=== PATIENT | female | born 1990 | race Hispanic/Latino ===

== ENCOUNTER 2021-07-26 10:55 | Observation (INO) | payer OTHER ==
[~2021-07-26] VITALS: Ht 154.9 cm; Wt 78.0 kg
== END 2021-07-26 13:25 | disposition home or self-care (01) ==
LOC: LDH 10:55
PROVIDERS: ADMIT Obstetrics & Gynecology; ATTEND Obstetrics & Gynecology
DX: O42.913 Preterm premature rupture of membranes, unspecified as to length of time between rupture and onset of labor, third trimester (principal); O62.9 Abnormality of forces of labor, unspecified; Z3A.36 36 weeks gestation of pregnancy
CPT/HCPCS: 59025; 76805; 82120; G0378 ×2; G0379

== ENCOUNTER 2021-08-09 10:36 | Inpatient (IN) | payer OTHER ==
[~2021-08-09] VITALS: Ht 154.9 cm; Wt 79.4 kg
[2021-08-09] MEDS: LACTATED RINGERS 1000ML 1,000 ML IV PRN ×2 (11:15→12:38)
[2021-08-09 11:34] LABS: HEMATOCRIT 30.7 % (36-48); MEAN CORPUSCULAR HEMOGLOBIN 26.6 pg (27.0-33.0); MEAN CORPUSCULAR HGB CONC 32.6 g/dL (32.0-36.0); MEAN CORPUSCULAR VOLUME 81.6 fL (79-99); RED BLOOD CELL COUNT(AUTO) 3.76 MIL/uL (4.00-5.50); RED CELL DISTRIBUTION WIDTH 14.2 % (11.0-15.5); WHITE BLOOD COUNT (AUTO) 8.8 K/uL (4.8-10.8)
[2021-08-09 11:36] LABS: APPEARANCE,URINE CLEAR (CLEAR); BILIRUBIN,URINE NEGATIVE (NEGATIVE); COLOR,URINE YELLOW (YELLOW); GLUCOSE, URINE (UA) NEGATIVE (NEGATIVE); KETONES,URINE NEGATIVE (NEGATIVE); LEUKOCYTE ESTERASE ,URINE SMALL (NEGATIVE); NITRATE,URINE NEGATIVE (NEGATIVE); OCCULT BLOOD,URINE NEGATIVE (NEGATIVE); PROTEIN,URINE NEGATIVE (NEGATIVE)
[2021-08-09 11:37] LABS: BACTERIA,URINE Rare /HPF (None Seen); CREATININE 0.6 mg/dL (0.5-1.5); POTASSIUM 3.8 mmol/L (3.5-5.1); RBC,URINE 0-1 /HPF (0-1); SQUAMOUS EPITHELIAL CELL,UR Rare /HPF (0-2); WBC,URINE 0-1 /HPF (0-1)
[2021-08-09 11:41] LABS: INR 0.93 (0.85-1.15); PROTHROMBIN TIME 9.9 SEC (9.6-11.6)
[2021-08-09 11:42] LABS: PARTIAL THROMBOPLASTIN TIME 25.2 SEC (26.3-35.5)
[2021-08-09 11:44] LABS: ALBUMIN 2.5 g/dL (3.5-5.0); BILIRUBIN,TOTAL 0.3 mg/dL (0.2-1.0); URIC ACID 5.1 mg/dL (2.6-7.2)
[2021-08-09] MEDS ORDERED: OXYTOCIN-LR 20 UNITS/1000 ML 1,000 ML IV SCH ×2 (12:30→15:00)
[2021-08-09] MEDS ORDERED: ROPIVACAINE 0.2% 100ML VIAL 100 ML EP SCH (12:30)
[2021-08-09] MEDS ORDERED: NALOXONE HCL 0.4 MG/1 ML ML IV PRN (12:30)
[2021-08-09] MEDS ORDERED: LACTATED RINGERS 500 ML 500 ML IV PRN (12:30)
[2021-08-09] MEDS ORDERED: MEPERIDINE-PF 50 MG/ML SYG IVP PRN (12:30)
[2021-08-09] MEDS ORDERED: EPHEDRINE SULFATE 50 MG/ML AMPULE IVP PRN (12:30)
[2021-08-09] MEDS ORDERED: PROMETHAZINE HCL 25 MG/ML 1ML AMPULE IM PRN (12:30)
[2021-08-09] MEDS ORDERED: LIDOCAINE HCL 1% 20 ML VIAL ONE (14:40)
[2021-08-09] MEDS ORDERED: WITCH HAZEL 1 PAD TP PRN (15:00)
[2021-08-09] MEDS ORDERED: ACETAMINOPHEN 325 MG TAB PO PRN (15:00)
[2021-08-09] MEDS ORDERED: LANOLIN 30GM OINTMENT TP PRN (15:00)
[2021-08-09] MEDS ORDERED: BENZOCAINE/LANOLIN/ALOE VERA 60 ML AEROSOL TP PRN (15:00)
[2021-08-09] MEDS ORDERED: DIPH,PERTUSS(ACELL),TET VAC/PF 0.5 ML VIAL IM PRN (15:00)
[2021-08-09] MEDS ORDERED: MEASLES/MUMPS/RUBELLA VACCINE, LIVE 0.5 ML/VIAL SQ PRN (15:00)
[2021-08-09] MEDS ORDERED: ACETAMINOPHEN WITH CODEINE 1 TAB TAB PO PRN (15:00)
[2021-08-09] MEDS: IBUPROFEN 600 MG TABLET PO PRN (17:42)
[2021-08-09] MEDS ORDERED: PREN-154 PO (18:03)
[2021-08-09 19:29] VITALS: BP 120/74
[2021-08-09] MEDS: DOCUSATE SODIUM 100 MG CAP PO SCH (20:38)
[2021-08-09 23:18] VITALS: BP 107/69
[2021-08-10 03:42] VITALS: BP 114/74
[2021-08-10] MEDS: IBUPROFEN 600 MG TABLET PO PRN (04:02)
[2021-08-10 06:39] LABS: HEMATOCRIT 26.2 % (36-48); MEAN CORPUSCULAR HEMOGLOBIN 26.6 pg (27.0-33.0); MEAN CORPUSCULAR HGB CONC 32.4 g/dL (32.0-36.0); MEAN CORPUSCULAR VOLUME 82.1 fL (79-99); RED BLOOD CELL COUNT(AUTO) 3.19 MIL/uL (4.00-5.50); RED CELL DISTRIBUTION WIDTH 14.3 % (11.0-15.5); WHITE BLOOD COUNT (AUTO) 11.1 K/uL (4.8-10.8)
[2021-08-10 07:07] VITALS: BP 102/63
[2021-08-10] MEDS: DOCUSATE SODIUM 100 MG CAP PO SCH (09:46)
[2021-08-10 11:50] VITALS: BP 113/75
[2021-08-10 12:00] VITALS: BP_SYST 113; BP_SYST 139; BP_DIAS 75; BP_DIAS 80
[2021-08-10 15:20] VITALS: BP 118/74
== END 2021-08-10 16:00 | disposition home or self-care (01) | DRG 807 ==
LOC: EDH 10:36 → LDH 10:37 → WSH 17:05
PROVIDERS: ADMIT Obstetrics & Gynecology; ATTEND Obstetrics & Gynecology
PROC: 10E0XZZ Delivery of Products of Conception, External Approach (ICD-10-PCS; principal; 2021-08-09)
PROC: 0KQM0ZZ Repair Perineum Muscle, Open Approach (ICD-10-PCS; 2021-08-09)
PROC: 10907ZC Drainage of Amniotic Fluid, Therapeutic from Products of Conception, Via Natural or Artificial Opening (ICD-10-PCS; 2021-08-09)
DX: O99.02 Anemia complicating childbirth (principal); Z37.0 Single live birth; Z3A.38 38 weeks gestation of pregnancy; O70.1 Second degree perineal laceration during delivery
CPT/HCPCS: 36415; 80053; 81001; 84550; 85027; 85384; 85610; 85730; 86592; 86850; 86900; 86901; 87340; 90715; A4351; G0378; J2175; J2550; J2590; J7120

== ENCOUNTER 2023-03-06 23:19 | Emergency (ER) | payer BC, OTHER ==
[~2023-03-06] VITALS: Ht 154.9 cm; Wt 76.7 kg
[~2023-03-06 23:19] MED LIST: PREN-154 PO
[2023-03-06 23:53] LABS: BASOPHILS # (AUTO) 0.03 K/uL (0.00-0.20); BASOPHILS % (AUTO) 0.5 % (0.0-5.0); EOSINOPHILS # (AUTO) 0.13 K/uL (0.00-0.70); EOSINOPHILS % (AUTO) 2.1 % (0.0-8.0); HEMATOCRIT 34.8 % (36-48); IMMATURE GRANULOCYTE ABSOLUTE 0.03 K/uL (0-1); LYMPHOCYTES # (AUTO) 0.9 K/uL (1.0-4.8); LYMPHOCYTES % (AUTO) 13.5 % (21.0-51.0); MEAN CORPUSCULAR HEMOGLOBIN 26.6 pg (27.0-33.0); MEAN CORPUSCULAR HGB CONC 31.6 g/dL (32.0-36.0); MEAN CORPUSCULAR VOLUME 84.3 fL (79-99); MONOCYTES # (AUTO) 0.5 K/uL (0.1-1.0); MONOCYTES % (AUTO) 8.4 % (3.0-13.0); NEUTROPHILS # (AUTO) 4.7 K/uL (1.8-7.7); PLATELET COUNT (AUTO) 247 K/uL (130-400); RED BLOOD CELL COUNT(AUTO) 4.13 MIL/uL (4.00-5.50); RED CELL DISTRIBUTION WIDTH 14.8 % (11.0-15.5); WHITE BLOOD COUNT (AUTO) 6.3 K/uL (4.8-10.8)
[2023-03-06 23:59] VITALS: BP 126/70; PULSE 85; RESP 17; O2SAT 99
[2023-03-07 00:01] LABS: CREATININE 0.7 mg/dL (0.5-1.5); POTASSIUM 3.4 mmol/L (3.5-5.1)
[2023-03-07 00:02] LABS: APPEARANCE,URINE CLEAR (CLEAR); BILIRUBIN,URINE NEGATIVE (NEGATIVE); COLOR,URINE YELLOW (YELLOW); GLUCOSE, URINE (UA) NEGATIVE (NEGATIVE); KETONES,URINE NEGATIVE (NEGATIVE); LEUKOCYTE ESTERASE ,URINE NEGATIVE Leu/uL (NEGATIVE); NITRATE,URINE NEGATIVE (NEGATIVE); OCCULT BLOOD,URINE NEGATIVE (NEGATIVE); PH,URINE 5.5 (5.0-8.0); PROTEIN,URINE 30 mg/dL (NEGATIVE)
[2023-03-07 00:05] LABS: ADD UA MICROSCOPIC YES; HCG,QUALITATIVE URINE NEGATIVE (NEGATIVE)
[2023-03-07 00:05] LABS: ALBUMIN 3.2 g/dL (3.5-5.0); BILIRUBIN,TOTAL 0.2 mg/dL (0.2-1.0); TOTAL PROTEIN, SERUM 7.2 g/dL (6.0-8.3)
[2023-03-07 00:06] LABS: MUCUS,URINE FEW LPF (None Seen); SQUAMOUS EPITHELIAL CELL,UR FEW /HPF (0-2)
[2023-03-07] MEDS ORDERED: METO10TA41 PO (01:50)
[2023-03-07] MEDS ORDERED: OMEP40CA21 PO (01:51)
== END 2023-03-07 02:17 | disposition home or self-care (01) ==
LOC: EDH 23:19
DX: R10.9 Unspecified abdominal pain (principal)
CPT/HCPCS: 36415; 74021; 80053; 81001; 81025; 83690; 85025

== ENCOUNTER 2023-08-03 13:49 | Emergency (ER) | payer BC ==
[~2023-08-03] VITALS: Ht 154.9 cm; Wt 75.7 kg
[~2023-08-03 13:49] MED LIST changes: +METO10TA41 PO; +OMEP40CA21 PO
[2023-08-03 14:36] LABS: ADD UA MICROSCOPIC YES; APPEARANCE,URINE CLEAR (CLEAR); BILIRUBIN,URINE NEGATIVE (NEGATIVE); COLOR,URINE YELLOW (YELLOW); GLUCOSE, URINE (UA) NEGATIVE (NEGATIVE); KETONES,URINE 10 mg/dL (NEGATIVE); LEUKOCYTE ESTERASE ,URINE 75 Leu/uL (NEGATIVE); NITRATE,URINE NEGATIVE (NEGATIVE); OCCULT BLOOD,URINE NEGATIVE (NEGATIVE); PROTEIN,URINE 10 mg/dL (NEGATIVE); UROBILINOGEN,URINE 0.2 mg/dL (0.2-1.0)
[2023-08-03] MEDS: ACETAMINOPHEN 500 MG TABLET PO ONE (14:36)
[2023-08-03 14:37] LABS: MUCUS,URINE RARE LPF (None Seen); SQUAMOUS EPITHELIAL CELL,UR MOD /HPF (0-2)
[2023-08-03 15:41] LABS: EOSINOPHILS # (AUTO) 0.07 K/uL (0.00-0.70); EOSINOPHILS % (AUTO) 0.7 % (0.0-8.0); HEMATOCRIT 33.7 % (36-48); IMMATURE GRANULOCYTE ABSOLUTE 0.03 K/uL (0-1); LYMPHOCYTES # (AUTO) 2.5 K/uL (1.0-4.8); LYMPHOCYTES % (AUTO) 24.8 % (21.0-51.0); MEAN CORPUSCULAR HEMOGLOBIN 26.7 pg (27.0-33.0); MEAN CORPUSCULAR HGB CONC 32.9 g/dL (32.0-36.0); MEAN CORPUSCULAR VOLUME 81.2 fL (79-99); MONOCYTES # (AUTO) 0.6 K/uL (0.1-1.0); MONOCYTES % (AUTO) 6.1 % (3.0-13.0); NEUTROPHILS # (AUTO) 6.8 K/uL (1.8-7.7); NEUTROPHILS % (AUTO) 67.1 % (40.0-77.0); PLATELET COUNT (AUTO) 327 K/uL (130-400); RED BLOOD CELL COUNT(AUTO) 4.15 MIL/uL (4.00-5.50); RED CELL DISTRIBUTION WIDTH 13.9 % (11.0-15.5); WHITE BLOOD COUNT (AUTO) 10.2 K/uL (4.8-10.8)
[2023-08-03 15:48] LABS: CREATININE 0.7 mg/dL (0.5-1.0); POTASSIUM 3.4 mmol/L (3.5-5.1)
[2023-08-03 16:07] VITALS: BP 134/88; PULSE 72; RESP 16; O2SAT 100
[2023-08-03] MEDS: KCL 20 MEQ ERTAB PO ONE (16:26)
== END 2023-08-03 16:29 | disposition home or self-care (01) ==
LOC: EDH 13:49
DX: O26.891 Other specified pregnancy related conditions, first trimester (principal); N89.8 Other specified noninflammatory disorders of vagina; E87.6 Hypokalemia; R10.9 Unspecified abdominal pain; R10.2 Pelvic and perineal pain; J45.909 Unspecified asthma, uncomplicated; F41.9 Anxiety disorder, unspecified
CPT/HCPCS: 36415; 76801; 80048; 81001; 84702; 85025; 86850; 86900; 86901; 87088; 87486; 87797

== ENCOUNTER 2023-09-26 10:36 | Emergency (ER) | payer BC ==
[~2023-09-26] VITALS: Ht 154.9 cm; Wt 77.1 kg
[2023-09-26] MEDS: ACETAMINOPHEN 500 MG TABLET PO ONE (12:09)
[2023-09-26 12:28] LABS: BASOPHILS # (AUTO) 0.06 K/uL (0.00-0.20); BASOPHILS % (AUTO) 0.8 % (0.0-5.0); EOSINOPHILS # (AUTO) 0.05 K/uL (0.00-0.70); EOSINOPHILS % (AUTO) 0.6 % (0.0-8.0); HEMATOCRIT 32.2 % (36-48); IMMATURE GRANULOCYTE ABSOLUTE 0.02 K/uL (0-1); LYMPHOCYTES # (AUTO) 1.5 K/uL (1.0-4.8); MEAN CORPUSCULAR HEMOGLOBIN 26.8 pg (27.0-33.0); MEAN CORPUSCULAR HGB CONC 33.2 g/dL (32.0-36.0); MEAN CORPUSCULAR VOLUME 80.5 fL (79-99); MONOCYTES # (AUTO) 0.4 K/uL (0.1-1.0); MONOCYTES % (AUTO) 5.5 % (3.0-13.0); NEUTROPHILS # (AUTO) 5.9 K/uL (1.8-7.7); NEUTROPHILS % (AUTO) 73.8 % (40.0-77.0); PLATELET COUNT (AUTO) 307 K/uL (130-400); RED CELL DISTRIBUTION WIDTH 14.5 % (11.0-15.5)
[2023-09-26 12:54] LABS: CREATININE 0.7 mg/dL (0.5-1.0); POTASSIUM 4.5 mmol/L (3.5-5.1)
[2023-09-26 14:33] LABS: APPEARANCE,URINE CLOUDY (CLEAR); BILIRUBIN,URINE NEGATIVE (NEGATIVE); COLOR,URINE YELLOW (YELLOW); GLUCOSE, URINE (UA) NEGATIVE (NEGATIVE); KETONES,URINE 150 mg/dL (NEGATIVE); LEUKOCYTE ESTERASE ,URINE 25 Leu/uL (NEGATIVE); NITRATE,URINE NEGATIVE (NEGATIVE); OCCULT BLOOD,URINE NEGATIVE (NEGATIVE); PH,URINE 6.5 (5.0-8.0); PROTEIN,URINE 50 mg/dL (NEGATIVE); UROBILINOGEN,URINE 3 mg/dL (0.2-1.0)
[2023-09-26 14:42] LABS: ADD UA MICROSCOPIC YES
[2023-09-26 14:45] LABS: BACTERIA,URINE RARE /HPF (None Seen); MUCUS,URINE FEW LPF (None Seen); SQUAMOUS EPITHELIAL CELL,UR MANY /HPF (0-2)
[2023-09-26] MEDS ORDERED: AMOX1TAB16 PO (14:53)
[2023-09-26] MEDS: AMOX/CLAV 875/125MG TAB PO ONE (15:03)
[2023-09-26 15:06] VITALS: BP 134/81; PULSE 75; RESP 20; O2SAT 99
== END 2023-09-26 15:08 | disposition home or self-care (01) ==
LOC: EDH 10:36
DX: O23.42 Unspecified infection of urinary tract in pregnancy, second trimester (principal); N39.0 Urinary tract infection, site not specified; O26.892 Other specified pregnancy related conditions, second trimester; F41.9 Anxiety disorder, unspecified; O99.512 Diseases of the respiratory system complicating pregnancy, second trimester; J45.909 Unspecified asthma, uncomplicated; Z3A.14 14 weeks gestation of pregnancy; Z79.899 Other long term (current) drug therapy
CPT/HCPCS: 36415; 76805; 80048; 81001; 84702; 85025; 86850; 86900; 86901; 87088

== ENCOUNTER 2024-01-14 15:13 | Observation (INO) | payer BC ==
[~2024-01-14] VITALS: Ht 154.9 cm; Wt 76.7 kg
[~2024-01-14 15:13] MED LIST changes: +AMOX1TAB16 PO
[2024-01-14 15:23] VITALS: BP 139/91; PULSE 88; RESP 18; TEMP 98.3
[2024-01-14 15:46] LABS: APPEARANCE,URINE CLEAR (CLEAR); BILIRUBIN,URINE NEGATIVE (NEGATIVE); COLOR,URINE YELLOW (YELLOW); GLUCOSE, URINE (UA) NEGATIVE (NEGATIVE); KETONES,URINE NEGATIVE (NEGATIVE); LEUKOCYTE ESTERASE ,URINE 250 Leu/uL (NEGATIVE); NITRATE,URINE NEGATIVE (NEGATIVE); OCCULT BLOOD,URINE NEGATIVE (NEGATIVE); PH,URINE 6.5 (5.0-8.0); PROTEIN,URINE NEGATIVE (NEGATIVE)
[2024-01-14 15:48] LABS: ADD UA MICROSCOPIC YES
[2024-01-14 15:50] LABS: BACTERIA,URINE RARE /HPF (None Seen); HYALINE CASTS, URINE 0-1 /LPF (0-1 /LPF); RBC,URINE 0-1 /HPF (0-1); SQUAMOUS EPITHELIAL CELL,UR FEW /HPF (0-2)
[2024-01-14] MEDS ORDERED: LACTATED RINGERS 1000ML 1,000 ML IV SCH (17:00)
[2024-01-14] MEDS: LACTATED RINGERS 1000ML 1,000 ML IV SCH (17:10)
[2024-01-14] MEDS: PROMETHAZINE HCL 25 MG/ML 1ML AMPULE IM ONE (17:18)
[2024-01-14 18:10] LABS: BASOPHILS # (AUTO) 0.05 K/uL (0.00-0.20); BASOPHILS % (AUTO) 0.6 % (0.0-5.0); EOSINOPHILS # (AUTO) 0.06 K/uL (0.00-0.70); EOSINOPHILS % (AUTO) 0.7 % (0.0-8.0); HEMATOCRIT 25.4 % (36-48); IMMATURE GRANULOCYTE ABSOLUTE 0.08 K/uL (0-1); MEAN CORPUSCULAR HEMOGLOBIN 23.9 pg (27.0-33.0); MEAN CORPUSCULAR HGB CONC 31.1 g/dL (32.0-36.0); MEAN CORPUSCULAR VOLUME 76.7 fL (79-99); MONOCYTES # (AUTO) 0.5 K/uL (0.1-1.0); MONOCYTES % (AUTO) 6.2 % (3.0-13.0); NEUTROPHILS # (AUTO) 5.3 K/uL (1.8-7.7); NEUTROPHILS % (AUTO) 66.5 % (40.0-77.0); NUCLEATED RED BLOOD CELLS 0.2 % (0.0-0.19); PLATELET COUNT (AUTO) 236 K/uL (130-400); RED BLOOD CELL COUNT(AUTO) 3.31 MIL/uL (4.00-5.50); RED CELL DISTRIBUTION WIDTH 15.9 % (11.0-15.5)
[2024-01-14 18:36] LABS: CREATININE 0.7 mg/dL (0.5-1.0); POTASSIUM 3.6 mmol/L (3.5-5.1)
[2024-01-14 18:40] LABS: ALBUMIN 1.9 g/dL (3.5-5.0); BILIRUBIN,TOTAL 0.4 mg/dL (0.2-1.0)
== END 2024-01-14 19:57 | disposition home or self-care (01) ==
LOC: EDH 15:13 → LDH 15:14
PROVIDERS: ADMIT Obstetrics & Gynecology; ATTEND Obstetrics & Gynecology
DX: O62.9 Abnormality of forces of labor, unspecified (principal); Z3A.30 30 weeks gestation of pregnancy; Z79.899 Other long term (current) drug therapy
CPT/HCPCS: 96372; 96360; 96361; 82150; 80053; 83690; 85025; 87086; 81001; 36415; G0378 ×4; G0379; J3105 ×2; J2550; 59025

== ENCOUNTER 2024-01-16 08:25 | Observation (INO) | payer BC ==
[~2024-01-16] VITALS: Ht 154.9 cm; Wt 78.0 kg
[2024-01-16 08:26] VITALS: BP 127/82; PULSE 82; RESP 16; TEMP 97.7
[2024-01-16] MEDS: LACTATED RINGERS 1000ML 1,000 ML IV SCH (09:40)
[2024-01-16 10:01] LABS: APPEARANCE,URINE CLOUDY (CLEAR); BILIRUBIN,URINE NEGATIVE (NEGATIVE); COLOR,URINE DARK-YELLOW (YELLOW); GLUCOSE, URINE (UA) NEGATIVE (NEGATIVE); KETONES,URINE 5 mg/dL (NEGATIVE); LEUKOCYTE ESTERASE ,URINE 250 Leu/uL (NEGATIVE); NITRATE,URINE NEGATIVE (NEGATIVE); OCCULT BLOOD,URINE NEGATIVE (NEGATIVE); PH,URINE 6.5 (5.0-8.0); PROTEIN,URINE 70 mg/dL (NEGATIVE); UROBILINOGEN,URINE 12 mg/dL (0.2-1.0)
[2024-01-16 10:03] LABS: ADD UA MICROSCOPIC YES
[2024-01-16 10:04] LABS: HEMATOCRIT 24.4 % (36-48); MEAN CORPUSCULAR HEMOGLOBIN 23.3 pg (27.0-33.0); MEAN CORPUSCULAR HGB CONC 30.7 g/dL (32.0-36.0); MEAN CORPUSCULAR VOLUME 75.8 fL (79-99); NUCLEATED RED BLOOD CELLS 0.4 % (0.0-0.19); PLATELET COUNT (AUTO) 264 K/uL (130-400); RED BLOOD CELL COUNT(AUTO) 3.22 MIL/uL (4.00-5.50); RED CELL DISTRIBUTION WIDTH 15.8 % (11.0-15.5); WHITE BLOOD COUNT (AUTO) 8.2 K/uL (4.8-10.8)
[2024-01-16 10:05] LABS: BACTERIA,URINE RARE /HPF (None Seen); CALCIUM OXALATE CRYSTALS,UR MOD /LPF (None Seen); MUCUS,URINE RARE LPF (None Seen); SQUAMOUS EPITHELIAL CELL,UR MANY /HPF (0-2); UNCLASSIFIED CRYSTAL 140 /HPF (None Seen)
[2024-01-16 11:17] LABS: EOSINOPHILS % (MANUAL) 2 % (1-6); LYMPHOCYTES % (MANUAL) 22 % (22-44); MAN.DIFF COMMENT-IMPRESSION MANUAL DIFFERENTIAL; MONOCYTES % (MANUAL) 3 % (2-9); PLATELET MORPHOLOGY COMMENT ADEQUATE; SEGMENTED NEUTROPHILS % 73 % (40-70); TOTAL CELLS COUNTED 100
== END 2024-01-16 11:00 | disposition home or self-care (01) ==
LOC: EDH 08:25 → LDH 08:26
PROVIDERS: ADMIT Obstetrics & Gynecology; ATTEND Obstetrics & Gynecology
DX: O26.893 Other specified pregnancy related conditions, third trimester (principal); R10.32 Left lower quadrant pain; R42 Dizziness and giddiness; O13.3 Gestational [pregnancy-induced] hypertension without significant proteinuria, third trimester; Z3A.30 30 weeks gestation of pregnancy
CPT/HCPCS: 59025; 96360; 96361 ×2; 85025; 86850; 86900; 86901; 81001; 36415; 76805; G0378 ×2; G0379

== ENCOUNTER 2024-02-12 21:25 | Observation (INO) | payer BC ==
[~2024-02-12] VITALS: Ht 154.9 cm; Wt 70.9 kg
[~2024-02-12 21:25] MED LIST changes: -AMOX1TAB16 PO; +FERR-82 PO; -METO10TA41 PO; -OMEP40CA21 PO
--- NOTE | 2024-02-12 21:56 | ERN ---
ED Note History of Present Illness Stated Complaint: C/O ABD PAIN/HERNIA PAIN Chief Complaint: Abdominal Pain Time Seen by MD: 21:28 Dictation: 33-YEAR-OLD FEMALE WITH PAST MEDICAL HISTORY ECLAMPSIA AND RECENT (01/23/2024) PRESENTS WITH ACUTELY ONSET SUPRAPUBIC ABDOMINAL PAIN THAT HAS SELF-RESOLVED VIA PRIVATE VEHICLE. THE PATIENT STATES THAT SHE HAD A HERNIA THAT WAS PROTRUDING FROM HER ABDOMEN DURING THE TIME WHICH THE ABDOMINAL PAIN WAS PRESENT. PATIENT DENIES CHANGE IN MENTAL STATUS, NAUSEA AND VOMITING DIAPHORESIS, SYNCOPE, PRESYNCOPE NONPRODUCTIVE COUGH AND FOCAL NEUROLOGICAL DEFICIT Allergies: Coded Allergies: No Known Drug Allergies (Unverified Allergy, Unknown, 07/26/21) Home Meds Reported Medications Ferrous Sulfate (Iron) 325 Mg (65 Mg Iron) Tablet, 325 MG PO DAILY, TAB 01/24/24 Vits #93/Iron Fum/FA ( Formula Tablet) 1 Each Tablet, 1 EACH PO DAILY, TAB 08/09/21 Past Medical History Past Medical History: Asthma, Hypertension, Other Additional Past Medical Hx: HX OF PRE-ECLAMPSIA Surgical History: Surgical History Other: D&C Family History: Negative Social History: Negative, Lives with family : 5 Para: 3 Aborts: 1 Review of System Dictation SEE HPI Initial Vital Sign VS Vital Signs Date Time Temp Pulse Resp B/P (MAP) Pulse Ox O2 Delivery O2 Flow Rate FiO2 02/12/24 21:26 98.4 75 16 155/100 97 Room Air Physical Exam Dictation PE GENERAL WELL APPEARING, NO ACUTE DISTRESS ABDOMEN: SOFT, NONTENDER, NON PERITONEAL, NO HERNIATION Results (Laboratory/Radiology) Laboratory/Radiology Laboratory Tests Test 02/12/24 22:00 02/12/24 22:18 White Blood Count 9.3 K/uL (4.8-10.8) Red Blood Count 4.53 MIL/uL (4.00-5.50) Hemoglobin 11.5 g/dL (12.0-16.0) L Hematocrit 36.5 % (36-48) Mean Corpuscular Volume 80.6 fL (79-99) Mean Corpuscular Hemoglobin 25.4 pg (27.0-33.0) L Mean Corpuscular Hemoglobin Concent 31.5 g/dL (32.0-36.0) L Red Cell Distribution Width 20.5 % (11.0-15.5) H Platelet Count 335 K/uL (130-400) Mean Platelet Volume 10.0 fL (7.5-10.5) Immature Granulocyte % (Auto) 0.3 % (0-1) Neutrophils (%) (Auto) 73.3 % (40.0-77.0) Lymphocytes (%) (Auto) 19.6 % (21.0-51.0) L Monocytes (%) (Auto) 4.2 % (3.0-13.0) Eosinophils (%) (Auto) 1.5 % (0.0-8.0) Basophils (%) (Auto) 1.1 % (0.0-5.0) Neutrophils # (Auto) 6.8 K/uL (1.8-7.7) Lymphocytes # (Auto) 1.8 K/uL (1.0-4.8) Monocytes # (Auto) 0.4 K/uL (0.1-1.0) Eosinophils # (Auto) 0.14 K/uL (0.00-0.70) Basophils # (Auto) 0.10 K/uL (0.00-0.20) Absolute Immature Granulocyte (auto 0.03 K/uL (0-1) Nucleated Red Blood Cells 0.0 % (0.0-0.19) Red Blood Cell Morphology See comments Sodium Level 137 mmol/L (136-145) Potassium Level 3.9 mmol/L (3.5-5.1) Chloride Level 102 mmol/L (101-111) Carbon Dioxide Level 25 mmol/L (21-32) Blood Urea Nitrogen 9 mg/dL (7-18) Creatinine 0.9 mg/dL (0.5-1.0) Glomerular Filtration Rate Calc 87 mL/min (>90) Random Glucose 106 mg/dL (70-105) H Total Calcium 9.1 mg/dL (8.5-10.1) Total Bilirubin 0.3 mg/dL (0.2-1.0) Aspartate Amino Transf (AST/SGOT) 17 U/L (10-37) Alanine Aminotransferase (ALT/SGPT) 22 U/L (12-78) Alkaline Phosphatase 116 U/L (50-136) Total Protein 7.4 g/dL (6.0-8.3) Albumin 3.5 g/dL (3.5-5.0) Lipase 26 U/L (16-77) Urine Color YELLOW (YELLOW) Urine Appearance CLOUDY (CLEAR) H Urine pH 6.0 (5.0-8.0) Urine Specific [place] 1.028 (1.001-1.031) Urine Protein 20 mg/dL (NEGATIVE) H Urine Glucose (UA) NEGATIVE mg/dL (NEGATIVE) Urine Ketones NEGATIVE mg/dL (NEGATIVE) Urine Occult Blood LARGE (NEGATIVE) H Urine Nitrate NEGATIVE (NEGATIVE) Urine Bilirubin NEGATIVE mg/dL (NEGATIVE) Urine Urobilinogen 0.2 mg/dL (0.2-1.0) Urine Leukocyte Esterase 500 Ross/uL (NEGATIVE) H Urine RBC 11-25 /HPF (0-1) H Urine WBC 51-100 /HPF (0-1) H Urine Squamous Epithelial Cells MOD /HPF (0-2) Urine Amorphous Crystals (Auto) RARE /LPF (None Seen) Urine Bacteria None /HPF (None Seen) Urine HCG, Qualitative NEGATIVE (NEGATIVE) ED Course ED Course Orders Procedure Category Date Status Time Cbc With Differential LAB 02/12/24 Complete 21:46 Comprehensive LAB 02/12/24 Complete Metabolic Panel 21:46 ,Urine Test LAB 02/12/24 Complete 21:46 Urinalysis Profile LAB 02/12/24 Complete 21:46 Ct Abdomen/Pelvis CT 02/12/24 Resulted W/Contrast 21:46 Acetaminophen 325 Tab PHA 02/12/24 Complete (Tylenol 325mg Tab 22:00 Lipase LAB 02/12/24 Complete 21:46 Culture Urine GALE 02/12/24 In Process 23:01 Iohexol (Omnipaque) PHA 02/12/24 Complete 23:07 General Surgery CONPHYSVC 02/13/24 Transmitted Consult 01:11 Edm Admit Bridge Order ADM 02/13/24 Transmitted 01:16 Admit Orders ADM 02/13/24 Transmitted 01:16 Current Medications Medications (Trade) Dose Ordered Sig/Adrian Route PRN Reason Start Time Stop Time Status Last Admin Dose Admin Acetaminophen (TYLenol 325MG TAB) 650 mg ONCE ONCE PO 02/12/24 22:00 02/12/24 22:01 DC 02/12/24 22:41 Iohexol (Omnipaque) 35,000 mg STK-MED ONCE IV 02/12/24 23:07 02/12/24 23:07 DC Vital Signs Date Time Temp Pulse Resp B/P (MAP) Pulse Ox O2 Delivery O2 Flow Rate FiO2 02/12/24 21:26 98.4 75 16 155/100 97 Room Air Medical Decision Making MDM DDX: Small bowel obstruction versus post surgical infection versus acute pancreatitis versus acute appendicitis versus perforated viscus # INTERPRETATION AND DISCUSSION: CBC and chemistry within normal limits. Lipase within normal limits. Doubt acute pancreatitis. CT abdomen and pelvis is showing possible incarcerated hernia with subsequent small-bowel obstruction. Patient is protrusion and abdominal pain have resolved while here in the emergency department. Patient is tolerating p.o.. Low clinical suspicion for active incarcerated hernia at this time. Spoke with general surgeon, , discussed workup and physical exam findings with him in context of CT read. We both agree to keep patient in observation overnight. He will follow. Spoke with hospitalist. Admission accepted. #Reevaluation: Upon re-evaluation, patient's abdomen benign with no evidence of hernia. Patient is still tolerating p.o. and resting comfortably in bed with the patient's partner at bedside. Discussed ED workup with patient. Recommend admission and observation for general surgery evaluation. Patient agreed with plan. By natural questions prior to admission DX & DISP Disposition: Inpatient Decision to Admit Time: 01:22 Departure Impression: Primary Impression: Ventral hernia Condition: Stable Referrals: JOELLE JANSEN MD (PCP) SEA BUCHANAN DO Feb 12, 2024 21:56
[2024-02-12 22:19] LABS: BASOPHILS % (AUTO) 1.1 % (0.0-5.0); EOSINOPHILS # (AUTO) 0.14 K/uL (0.00-0.70); EOSINOPHILS % (AUTO) 1.5 % (0.0-8.0); HEMATOCRIT 36.5 % (36-48); IMMATURE GRANULOCYTE ABSOLUTE 0.03 K/uL (0-1); LYMPHOCYTES # (AUTO) 1.8 K/uL (1.0-4.8); LYMPHOCYTES % (AUTO) 19.6 % (21.0-51.0); MEAN CORPUSCULAR HEMOGLOBIN 25.4 pg (27.0-33.0); MEAN CORPUSCULAR HGB CONC 31.5 g/dL (32.0-36.0); MEAN CORPUSCULAR VOLUME 80.6 fL (79-99); MONOCYTES # (AUTO) 0.4 K/uL (0.1-1.0); MONOCYTES % (AUTO) 4.2 % (3.0-13.0); NEUTROPHILS # (AUTO) 6.8 K/uL (1.8-7.7); NEUTROPHILS % (AUTO) 73.3 % (40.0-77.0); PLATELET COUNT (AUTO) 335 K/uL (130-400); RED BLOOD CELL COUNT(AUTO) 4.53 MIL/uL (4.00-5.50); RED CELL DISTRIBUTION WIDTH 20.5 % (11.0-15.5); WHITE BLOOD COUNT (AUTO) 9.3 K/uL (4.8-10.8)
[2024-02-12 22:34] LABS: CREATININE 0.9 mg/dL (0.5-1.0); POTASSIUM 3.9 mmol/L (3.5-5.1)
[2024-02-12 22:39] LABS: ALBUMIN 3.5 g/dL (3.5-5.0); BILIRUBIN,TOTAL 0.3 mg/dL (0.2-1.0); TOTAL PROTEIN, SERUM 7.4 g/dL (6.0-8.3)
[2024-02-12 22:41] LABS: APPEARANCE,URINE CLOUDY (CLEAR); BILIRUBIN,URINE NEGATIVE (NEGATIVE); COLOR,URINE YELLOW (YELLOW); GLUCOSE, URINE (UA) NEGATIVE (NEGATIVE); KETONES,URINE NEGATIVE (NEGATIVE); LEUKOCYTE ESTERASE ,URINE 500 Leu/uL (NEGATIVE); NITRATE,URINE NEGATIVE (NEGATIVE); OCCULT BLOOD,URINE LARGE (NEGATIVE); PROTEIN,URINE 20 mg/dL (NEGATIVE); UROBILINOGEN,URINE 0.2 mg/dL (0.2-1.0)
[2024-02-12] MEDS: acetaMINOPHEN 325 MG TAB PO ONE (22:41)
[2024-02-12 23:01] LABS: ADD UA MICROSCOPIC YES; HCG,QUALITATIVE URINE NEGATIVE (NEGATIVE)
[2024-02-12 23:05] LABS: MUCUS,URINE RARE LPF (None Seen); SQUAMOUS EPITHELIAL CELL,UR MOD /HPF (0-2); WBC,URINE 51-100 /HPF (0-1)
[2024-02-12] MEDS ORDERED: IOHEXOL 350 MG/ML 100ML INFUS..BTL IV ONE (23:07)
--- NOTE | 2024-02-12 23:40 | HMCIMG ---
CT ABDOMEN/PELVIS W/CONTRAST HISTORY: Abdominal pain COMPARISON: None TECHNIQUE: Multiple sequential axial images of the abdomen and pelvis were obtained from the dome of the diaphragm through symphysis pubis. Patient was given 100 cc of Omnipaque through intravenous route. Oral contrast was not given. FINDINGS: No pleural effusion is seen bilaterally. There is no evidence of parenchymal disease or pulmonary nodule of the visualized lower lungs. Minimal degenerative changes of the thoracolumbar spine are present. The heart is not enlarged. There is periumbilical hernia with fat content with fat stranding may be related to incarcerated hernia. Tiny gallstones are seen in the distended gallbladder. Minimal nonspecific small bowel dilatation is seen with fluid-filled may be related to enteritis. The liver, spleen, adrenal glands and pancreas are unremarkable. There is no evidence of hydronephrosis bilaterally. No evidence of renal stone is seen. Fecal material is seen in the colon. There are normal size retroperitoneal and mesenteric lymph nodes. No ascites is seen. Tiny amount of free fluid is seen in the pelvis. Appendix is not well seen limiting evaluation. Pelvic sidewalls are symmetric bilaterally. Bladder is moderately distended with apparent bladder wall thickening measuring 5 mm. If there is clinical suspicion for cystitis, urinalysis correlation may be helpful. IMPRESSION: 1. There is periumbilical hernia with fat content with fat stranding may be related to incarcerated hernia. Tiny gallstones are seen in the distended gallbladder. Minimal nonspecific small bowel dilatation is seen with fluid-filled may be related to enteritis. CT was performed with one or more following dose reduction techniques: automated exposure control, adjustment of the mA and kv according to patient's size, or use of a iterative reconstruction technique.
[2024-02-13] MEDS ORDERED: LABE200T7 PO (01:19)
[2024-02-13] MEDS ORDERED: acetaMINOPHEN 325 MG TAB PO PRN (01:30)
[2024-02-13] MEDS ORDERED: LACTULOSE 20 GM/30 ML UDCUP PO PRN (01:30)
[2024-02-13] MEDS ORDERED: hydroMORPHone 1 MG INJ IVP PRN (01:30)
[2024-02-13] MEDS ORDERED: hydrALAZine 20MG/ML VIAL IV PRN (01:30)
[2024-02-13] MEDS ORDERED: doCUSate SODIUM 100 MG CAP PO PRN (01:30)
[2024-02-13] MEDS ORDERED: TEMAZepam 15 MG CAPSULE PO PRN (01:30)
[2024-02-13] MEDS ORDERED: acetaMINOPHEN 650 MG SUPPOSITORY RC PRN (01:30)
[2024-02-13] MEDS ORDERED: ondanSETRON 4MG INJ IVP PRN (01:30)
--- NOTE | 2024-02-13 01:36 | HP ---
[facility] HISTORY AND PHYSICAL Date of Service: Feb 13, 2024 Time of Service: 01:36 PCP: Dr. Evan Mills Attending/supervising physician: Dr. Strong and Dr. Steven HISTORY OF PRESENT ILLNESS: Ms. Reyes is a 33-year-old female with history of pre-eclampsia, asthma, hypertension who presented to [facility] for evaluation of a umbilical & suprapubic abdominal pain that self-resolved via private vehicle. The patient stated that she had a hernia that was protruding from her abdomen during the time which the abdominal pain was present. Patient denied nausea, vomiting, diaphoresis, syncope, presyncope. Nonproductive cough, focal, or neuro deficits. CT abdomen and pelvis with contrast: There is periumbilical hernia with fat content with fat stranding may be related to incarcerated hernia. Tiny gallstones are seen in the distended gallbladder. Minimal nonspecific small bowel dilatation is seen with fluid-filled may be related to enteritis. UA was positive for leuk EST. In ED patient was administered acetaminophen. ED provider request patient be admitted with the diagnosis of incarcerated hernia. REVIEW OF SYSTEMS 12-point rods reviewed with the patient. All pertinent positives mentioned above. Otherwise negative, non-pertinent, noncontributory. PAST MEDICAL HISTORY: As mentioned above PAST SURGICAL HISTORY: , D&C PAST SOCIAL HISTORY: Denied: Tobacco, alcohol, illicit drug use FAMILY HISTORY: Noncontributory Coded Allergies: No Known Drug Allergies (Unverified Allergy, Unknown, 07/26/21) PHYSICAL EXAM GENERAL APPEARANCE: The patient is awake, alert, and oriented, in no acute cardiopulmonary distress. NEUROLOGICAL: Cranial nerves II-XII grossly intact. Motor is 5/5 in bilateral upper and lower extremities proximal to distal. No sensory deficits. HEENT: Face is symmetric. Pupils are equal and reactive. Extraocular movements are intact. NECK: Supple. No JVD. No thyromegaly. No submental, submandibular, pre- /postauricular, occipital or supraclavicular lymphadenopathy. CHEST: Normal chest expansion. No Telemetry. LUNGS: Absence of any rales, rhonchi or any wheezing. CARDIOVASCULAR: Regular. S1 and S2 normal. No appreciable rubs, murmurs or gallops. ABDOMEN: Soft, nontender, and nondistended. There is no rebound, voluntary guarding, or rigidity. : Deferred. No Taylor. EXTREMITIES: Non-edematous and not cyanotic. No clubbing. Good capillary refill. SKIN: No skin breakdown. Vital Sign (Last 24 Hours) 02/13/24 01:18 Temp 98.1 Pulse 72 Resp 18 B/P (MAP) 145/65 Pulse Ox 100 O2 Delivery Room Air* O2 Flow Rate 0 FiO2 21 LABS: Laboratory: Test 02/12/24 22:18 02/12/24 22:00 Range/Units Urine Color YELLOW YELLOW Urine Appearance CLOUDY H CLEAR Urine pH 6.0 5.0-8.0 Urine Specific [place] 1.028 1.001-1.031 Urine Protein 20 H NEGATIVE mg/dL Urine Glucose (UA) NEGATIVE NEGATIVE mg/dL Urine Ketones NEGATIVE NEGATIVE mg/dL Urine Occult Blood LARGE H NEGATIVE Urine Nitrate NEGATIVE NEGATIVE Urine Bilirubin NEGATIVE NEGATIVE mg/dL Urine Urobilinogen 0.2 0.2-1.0 mg/dL Urine Leukocyte Esterase 500 H NEGATIVE Ross/uL Urine RBC 11-25 H 0-1 /HPF Urine WBC 51-100 H 0-1 /HPF Urine Squamous Epithelial Cells MOD 0-2 /HPF Urine Amorphous Crystals (Auto) RARE None Seen /LPF Urine Bacteria None None Seen /HPF Urine HCG, Qualitative NEGATIVE NEGATIVE White Blood Count 9.3 4.8-10.8 K/uL Red Blood Count 4.53 4.00-5.50 MIL/uL Hemoglobin 11.5 L 12.0-16.0 g/dL Hematocrit 36.5 36-48 % Mean Corpuscular Volume 80.6 79-99 fL Mean Corpuscular Hemoglobin 25.4 L 27.0-33.0 pg Mean Corpuscular Hemoglobin Concent 31.5 L 32.0-36.0 g/dL Red Cell Distribution Width 20.5 H 11.0-15.5 % Platelet Count 335 130-400 K/uL Mean Platelet Volume 10.0 7.5-10.5 fL Immature Granulocyte % (Auto) 0.3 0-1 % Neutrophils (%) (Auto) 73.3 40.0-77.0 % Lymphocytes (%) (Auto) 19.6 L 21.0-51.0 % Monocytes (%) (Auto) 4.2 3.0-13.0 % Eosinophils (%) (Auto) 1.5 0.0-8.0 % Basophils (%) (Auto) 1.1 0.0-5.0 % Neutrophils # (Auto) 6.8 1.8-7.7 K/uL Lymphocytes # (Auto) 1.8 1.0-4.8 K/uL Monocytes # (Auto) 0.4 0.1-1.0 K/uL Eosinophils # (Auto) 0.14 0.00-0.70 K/uL Basophils # (Auto) 0.10 0.00-0.20 K/uL Absolute Immature Granulocyte (auto 0.03 0-1 K/uL Nucleated Red Blood Cells 0.0 0.0-0.19 % Red Blood Cell Morphology See comments Sodium Level 137 136-145 mmol/L Potassium Level 3.9 3.5-5.1 mmol/L Chloride Level 102 101-111 mmol/L Carbon Dioxide Level 25 21-32 mmol/L Blood Urea Nitrogen 9 7-18 mg/dL Creatinine 0.9 0.5-1.0 mg/dL Glomerular Filtration Rate Calc 87 >90 mL/min Random Glucose 106 H 70-105 mg/dL Total Calcium 9.1 8.5-10.1 mg/dL Total Bilirubin 0.3 0.2-1.0 mg/dL Aspartate Amino Transf (AST/SGOT) 17 10-37 U/L Alanine Aminotransferase (ALT/SGPT) 22 12-78 U/L Alkaline Phosphatase 116 50-136 U/L Total Protein 7.4 6.0-8.3 g/dL Albumin 3.5 3.5-5.0 g/dL Lipase 26 16-77 U/L Current Medications Medications (Trade) Dose Ordered Sig/Adrian Route PRN Reason Start Time Stop Time Status Last Admin Dose Admin Acetaminophen (TYLenol 325MG TAB) 650 mg Q6H PRN PO FEVER/MILD PAIN LEVEL 1-3 02/13/24 01:30 03/14/24 01:29 Acetaminophen (TYLenol 650MG SUPPOSITORY) 650 mg Q6H PRN RC FEVER / MILD PAIN 1-3 IF NPO 02/13/24 01:30 03/14/24 01:29 Docusate Sodium (COLace 100MG CAP) 100 mg BID PRN PO c 02/13/24 01:30 03/14/24 01:29 Hydralazine HCl (APRESOLine 20MG INJ) 10 mg Q6H PRN IV SBP GREATER THAN 180 02/13/24 01:30 03/14/24 01:29 Hydromorphone HCl (DiLAUDid 1MG INJ) 0.5 mg Q4H PRN IVP SEVERE PAIN (7-10) 02/13/24 01:30 02/18/24 01:29 Insulin Human Regular (humuLIN R 100 UNIT/ML 3ML) INSULIN SLIDING SCAL... ACHS SQ 02/13/24 07:30 03/14/24 07:29 Lactated Ringer's 1,000 ml @ 100 mls/hr Q10H IV 02/13/24 01:30 03/14/24 01:29 Lactulose (Constulose 20gm/ 30ml Udcup) 20 gm Q6H PRN PO CONSTIPATION 02/13/24 01:30 03/14/24 01:29 Ondansetron HCl (zoFRAN 4MG INJ) 4 mg Q6H PRN IVP NAUSEA/VOMITING 02/13/24 01:30 03/14/24 01:29 Temazepam (restORIL 15 MG CAP) 15 mg HS PRN PO INSOMNIA/SLEEP 02/13/24 01:30 03/14/24 01:29 DIAGNOSTICS / RADIOLOGY: [ ] ASSESSMENT: Incarcerated hernia, POA Gallstones are seen in the distended gallbladder, POA Acute complicated cystitis, POA Acute abdominal pain, POA Anemia Hyperglycemia Chronic problem list: Asthma, hypertension, History of colon: pre-eclampsia PLAN: Admit to medical-surgical floor. Start Rocephin2 g IV daily. P.r.n. medications for: Pain management, nausea, vomiting, constipation, hypertension Consult general surgeon. Monitor electrolytes and treat accordingly. Monitor renal and liver function. Blood pressures every4 hours and p.r.n.. Monitor blood glucose, start insulin regular per sliding scale. DVT and GI prophylaxis. A.m. labs: CBC, CMP, Mag, phos, TSH, A1c, LFT ADVANCED CARE PLANNING 1. Which of the following were discussed? Hospice Care - No Therapeutic options - Yes Advance Directives - Yes Other discussions - 2. Discussed with who? Patient 3. Voluntary nature of this service was explained to the patient? Yes 4. Amount of time spent - __ over 35 minute 5. Reviewed by Physician? (if this service was performed by NPP) Yes Patient seen and examined by me. Agree with note by AUTO ROLLER SEE ADDITIONAL ORDERS PER CHART DISCUSSED WITH NURSING STAFF LEODAN HERNANDEZ CORRECTIONAL SERGEANT Feb 13, 2024 01:36
[2024-02-13] MEDS: CEFTRIAXONE 2GM VIAL IVPB SCH (01:47)
[2024-02-13] MEDS: LACTATED RINGERS 1000ML 1,000 ML IV SCH (01:47)
[2024-02-13 02:18] VITALS: BP 147/79; PULSE 62; RESP 20; TEMP 98
[2024-02-13 04:00] VITALS: BP 143/74; PULSE 64; RESP 20; TEMP 97.8
[2024-02-13] MEDS ORDERED: MAGNESIUM 2GM PREMIX 50ML 50 ML IV PRN (05:30)
[2024-02-13] MEDS ORDERED: PoTASSium chloRIDE 20MEQ ER 20 MEQ ERTAB PO PRN (05:30)
[2024-02-13] MEDS ORDERED: PoTASSium chloRIDE 20MEQ/100ML 100 ML IV PRN ×2 (05:30)
[2024-02-13] MEDS ORDERED: PoTASSium chl 10% ELIXIR 20MEQ 20 MEQ/15 ML UDCUP PO PRN (05:30)
[2024-02-13] MEDS: INSULIN humuLIN R 100 UNIT/ML 3ML SQ SCH (05:41)
[2024-02-13 07:17] LABS: BASOPHILS % (AUTO) 1.8 % (0.0-5.0); EOSINOPHILS # (AUTO) 0.13 K/uL (0.00-0.70); EOSINOPHILS % (AUTO) 2.3 % (0.0-8.0); HEMATOCRIT 36.6 % (36-48); IMMATURE GRANULOCYTE ABSOLUTE 0.01 K/uL (0-1); LYMPHOCYTES % (AUTO) 35.8 % (21.0-51.0); MEAN CORPUSCULAR HEMOGLOBIN 25.2 pg (27.0-33.0); MEAN CORPUSCULAR HGB CONC 31.1 g/dL (32.0-36.0); MONOCYTES # (AUTO) 0.4 K/uL (0.1-1.0); MONOCYTES % (AUTO) 6.8 % (3.0-13.0); NEUTROPHILS % (AUTO) 53.1 % (40.0-77.0); PLATELET COUNT (AUTO) 318 K/uL (130-400); RED BLOOD CELL COUNT(AUTO) 4.52 MIL/uL (4.00-5.50); RED CELL DISTRIBUTION WIDTH 20.6 % (11.0-15.5); WHITE BLOOD COUNT (AUTO) 5.6 K/uL (4.8-10.8)
[2024-02-13 07:57] LABS: ALBUMIN 3.1 g/dL (3.5-5.0); BILIRUBIN,DIRECT 0.1 mg/dL (0.0-0.3); BILIRUBIN,TOTAL 0.3 mg/dL (0.2-1.0); CREATININE 0.8 mg/dL (0.5-1.0); MAGNESIUM 1.9 mg/dL (1.80-2.40); PHOSPHORUS 4.2 mg/dL (2.5-4.9); POTASSIUM 3.8 mmol/L (3.5-5.1); TOTAL PROTEIN, SERUM 6.8 g/dL (6.0-8.3)
[2024-02-13 08:00] VITALS: BP 125/94; PULSE 79; RESP 16; TEMP 98.7; O2SAT 99
[2024-02-13 09:15] LABS: HEMOGLOBIN A1C 5.3 % (4.0-6.0)
--- NOTE | 2024-02-13 11:02 | PN ---
[facility] PROGRESS NOTE Date of Service: Feb 13, 2024 Time of Service: 11:01 SUBJECTIVE: [ 32-year-old female presented to the emergency department with the abdominal pain, she was noted with ventral hernia for which it has probably been reduced, we are still waiting for further recommendations from general surgeon. Patient also was noted with urinary tract infection cultures pending. For now we will continue with IV ceftriaxone daily. Patient can probably have regular diet if no surgery is recommended. ] REVIEW OF SYSTEMS 12-point rods reviewed with the patient. All pertinent positives mentioned above. Otherwise negative, non-pertinent, noncontributory. PHYSICAL EXAM GENERAL APPEARANCE: The patient is awake, alert, and oriented, in no acute cardiopulmonary distress. NEUROLOGICAL: Cranial nerves II-XII grossly intact. Motor is 5/5 in bilateral upper and lower extremities proximal to distal. No sensory deficits. HEENT: Face is symmetric. Pupils are equal and reactive. Extraocular movements are intact. NECK: Supple. No JVD. No thyromegaly. No submental, submandibular, pre- /postauricular, occipital or supraclavicular lymphadenopathy. CHEST: Normal chest expansion. No Telemetry. LUNGS: Absence of any rales, rhonchi or any wheezing. CARDIOVASCULAR: Regular. S1 and S2 normal. No appreciable rubs, murmurs or gallops. ABDOMEN: Soft, nontender, and nondistended. There is no rebound, voluntary guarding, or rigidity. : Deferred. No Taylor. EXTREMITIES: Non-edematous and not cyanotic. No clubbing. Good capillary refill. SKIN: No skin breakdown. Vital Signs (last 8hr) Date Time Temp Pulse Resp B/P (MAP) Pulse Ox O2 Delivery O2 Flow Rate FiO2 02/13/24 08:00 98.8 79 16 125/94 99 Room Air 21 02/13/24 04:00 97.9 64 20 143/74 100 Nasal Cannula 02/13/24 03:30 Room Air* 0 21 LABS: Laboratory: Test 02/13/24 07:12 02/13/24 05:20 02/12/24 22:18 02/12/24 22:00 Range/Units White Blood Count 5.6 # 4.8-10.8 K/uL Red Blood Count 4.52 4.00-5.50 MIL/uL Hemoglobin 11.4 L 12.0-16.0 g/dL Hematocrit 36.6 36-48 % Mean Corpuscular Volume 81.0 79-99 fL Mean Corpuscular Hemoglobin 25.2 L 27.0-33.0 pg Mean Corpuscular Hemoglobin Concent 31.1 L 32.0-36.0 g/dL Red Cell Distribution Width 20.6 H 11.0-15.5 % Platelet Count 318 130-400 K/uL Mean Platelet Volume 10.2 7.5-10.5 fL Immature Granulocyte % (Auto) 0.2 0-1 % Neutrophils (%) (Auto) 53.1 40.0-77.0 % Lymphocytes (%) (Auto) 35.8 21.0-51.0 % Monocytes (%) (Auto) 6.8 3.0-13.0 % Eosinophils (%) (Auto) 2.3 0.0-8.0 % Basophils (%) (Auto) 1.8 0.0-5.0 % Neutrophils # (Auto) 3.0 1.8-7.7 K/uL Lymphocytes # (Auto) 2.0 1.0-4.8 K/uL Monocytes # (Auto) 0.4 0.1-1.0 K/uL Eosinophils # (Auto) 0.13 0.00-0.70 K/uL Basophils # (Auto) 0.10 0.00-0.20 K/uL Absolute Immature Granulocyte (auto 0.01 0-1 K/uL Nucleated Red Blood Cells 0.0 0.0-0.19 % Sodium Level 142 136-145 mmol/L Potassium Level 3.8 3.5-5.1 mmol/L Chloride Level 107 101-111 mmol/L Carbon Dioxide Level 27 21-32 mmol/L Blood Urea Nitrogen 6 L 7-18 mg/dL Creatinine 0.8 0.5-1.0 mg/dL Glomerular Filtration Rate Calc 100 >90 mL/min Random Glucose 95 70-105 mg/dL Hemoglobin A1c 5.3 4.0-6.0 % Estimated Average Glucose (eAG) 105 70-126 mg/dL Total Calcium 8.8 8.5-10.1 mg/dL Phosphorus Level 4.2 2.5-4.9 mg/dL Magnesium Level 1.90 1.80-2.40 mg/dL Total Bilirubin 0.3 0.2-1.0 mg/dL Direct Bilirubin 0.1 0.0-0.3 mg/dL Aspartate Amino Transf (AST/SGOT) 14 10-37 U/L Alanine Aminotransferase (ALT/SGPT) 20 12-78 U/L Alkaline Phosphatase 106 50-136 U/L Total Protein 6.8 6.0-8.3 g/dL Albumin 3.1 L 3.5-5.0 g/dL Whole Blood Glucose 106 70-110 MG/DL Urine Color YELLOW YELLOW Urine Appearance CLOUDY H CLEAR Urine pH 6.0 5.0-8.0 Urine Specific [place] 1.028 1.001-1.031 Urine Protein 20 H NEGATIVE mg/dL Urine Glucose (UA) NEGATIVE NEGATIVE mg/dL Urine Ketones NEGATIVE NEGATIVE mg/dL Urine Occult Blood LARGE H NEGATIVE Urine Nitrate NEGATIVE NEGATIVE Urine Bilirubin NEGATIVE NEGATIVE mg/dL Urine Urobilinogen 0.2 0.2-1.0 mg/dL Urine Leukocyte Esterase 500 H NEGATIVE Ross/uL Urine RBC 11-25 H 0-1 /HPF Urine WBC 51-100 H 0-1 /HPF Urine Squamous Epithelial Cells MOD 0-2 /HPF Urine Amorphous Crystals (Auto) RARE None Seen /LPF Urine Bacteria None None Seen /HPF Urine HCG, Qualitative NEGATIVE NEGATIVE Red Blood Cell Morphology See comments Lipase 26 16-77 U/L Current Medications Medications (Trade) Dose Ordered Sig/Adrian Route PRN Reason Start Time Stop Time Status Last Admin Dose Admin Acetaminophen (TYLenol 325MG TAB) 650 mg Q6H PRN PO FEVER/MILD PAIN LEVEL 1-3 02/13/24 01:30 03/14/24 01:29 Acetaminophen (TYLenol 650MG SUPPOSITORY) 650 mg Q6H PRN RC FEVER / MILD PAIN 1-3 IF NPO 02/13/24 01:30 03/14/24 01:29 Ceftriaxone Sodium (Rocephin 2gm Inj) 2 gm Q24H IVPB 02/13/24 02:00 02/23/24 01:59 02/13/24 01:47 2 GM Docusate Sodium (COLace 100MG CAP) 100 mg BID PRN PO c 02/13/24 01:30 03/14/24 01:29 Hydralazine HCl (APRESOLine 20MG INJ) 10 mg Q6H PRN IV SBP GREATER THAN 180 02/13/24 01:30 03/14/24 01:29 Hydromorphone HCl (DiLAUDid 1MG INJ) 0.5 mg Q4H PRN IVP SEVERE PAIN (7-10) 02/13/24 01:30 02/18/24 01:29 Insulin Human Regular (humuLIN R 100 UNIT/ML 3ML) INSULIN SLIDING SCAL... ACHS SQ 02/13/24 07:30 03/14/24 07:29 Lactated Ringer's 1,000 ml @ 100 mls/hr Q10H IV 02/13/24 01:30 03/14/24 01:29 02/13/24 01:47 100 MLS/HR Lactulose (Constulose 20gm/ 30ml Udcup) 20 gm Q6H PRN PO CONSTIPATION 02/13/24 01:30 03/14/24 01:29 Magnesium Sulfate 50 ml @ 0 mls/hr PROTOCOL PRN IV LOW MAG 02/13/24 05:30 03/14/24 05:29 Ondansetron HCl (zoFRAN 4MG INJ) 4 mg Q6H PRN IVP NAUSEA/VOMITING 02/13/24 01:30 03/14/24 01:29 Potassium Chloride 100 ml @ 50 mls/hr AD PRN IV POTASSIUM PROTOCOL 02/13/24 05:30 02/13/24 05:16 DC Potassium Chloride 100 ml @ 100 mls/hr AD PRN IV POTASSIUM PROTOCOL 02/13/24 05:30 03/14/24 05:29 Potassium Chloride (K-Dur/Klor-Con 20meq) 20 meq AD PRN PO POTASSIUM PROTOCOL 02/13/24 05:30 03/14/24 05:29 Potassium Chloride (KCl 10% Elixir 20meq/15ml) 20 meq AD PRN PO POTASSIUM PROTOCOL 02/13/24 05:30 03/14/24 05:29 Temazepam (restORIL 15 MG CAP) 15 mg HS PRN PO INSOMNIA/SLEEP 02/13/24 01:30 03/14/24 01:29 DIAGNOSTICS / RADIOLOGY: [ ] ASSESSMENT: Incarcerated hernia, POA Gallstones are seen in the distended gallbladder, POA Acute complicated cystitis, POA Acute abdominal pain, POA Anemia Hyperglycemia Chronic problem list: Asthma, hypertension, History of colon: pre-eclampsia PLAN: Admit to medical-surgical floor. Continue Rocephin2 g IV daily. P.r.n. medications for: Pain management, nausea, vomiting, constipation, hypertension Consult general surgeon. If no surgery, patient can have regular diet Monitor electrolytes and treat accordingly. Monitor renal and liver function. Blood pressures every4 hours and p.r.n.. Monitor blood glucose, start insulin regular per sliding scale. DVT and GI prophylaxis. Patient was seen and examined with Dr. Villegas, above plan was formulated ATTESTATION BY PHYSICIAN I have seen and examined the patient. I reviewed the documentation, medical decision making, and treatment plan as noted by the mid-level provider above. I agree with the findings and plan of care. JUNAID VILLEGAS MD, [facility] Feb 13, 2024 11:02
--- NOTE | 2024-02-13 11:30 | NUR ---
BLOOD GLUCOSE 95. NO INSULIN COVERAGE NEEDED AT THIS TIME.
[2024-02-13 12:00] VITALS: BP 151/92; PULSE 69; RESP 16; TEMP 98.6
--- NOTE | 2024-02-13 12:00 | NUR ---
CALLED DR. BOURNE TO DISCUSSED PLAN OF CARE. TOLD ME PATIENT WAS CLEARED TO GO HOME. FOLLOW UP APPOINTMENT IN 2 WEEKS. PATIENT STATED SHE WILL MAKE THE APPOINTMENT.
--- NOTE | 2024-02-13 12:56 | DS ---
Discharge Summary Hospital Course Summary: Ms. Reyes is a 33-year-old female with history of pre-eclampsia, asthma, hypertension who presented to [facility] [place] [facility] ED for evaluation of a umbilical & suprapubic abdominal pain that self-resolved via private vehicle. The patient stated that she had a hernia that was protruding from her abdomen during the time which the abdominal pain was present. Patient denied nausea, vomiting, diaphoresis, syncope, presyncope. Nonproductive cough, focal, or neuro deficits. CT abdomen and pelvis with contrast: There is periumbilical hernia with fat content with fat stranding may be related to incarcerated hernia. Tiny gallstones are seen in the distended gallbladder. Minimal nonspecific small bowel dilatation is seen with fluid-filled may be related to enteritis. UA was positive for leuk EST. In ED patient was administered acetaminophen. ED provider request patient be admitted with the diagnosis of incarcerated hernia. Patient was evaluated today, seemed like hernia has been reduced. Her abdomen is soft nontender. General surgeon indicated no surgery at this time. Patient was also noted with a urinary tract infection for which patient indicated that she already started her p.o. antibiotics that was prescribed to her by her PCP. She will be discharged today unstable condition. Patient is hemodynamically stable, she has no fever. Her white count is within normal limits. Supervisor Maintenance And Custodians(s): Dr. Thao - general surgeon Procedure(s): [place] [id number] [id number] IMAGING REPORT Signed PATIENT: JEROME REYES MR#: [id number] : 1990 SEX: F AGE: 33 LOCATION: [facility] ORDER 47 STATUS: REG ER REPORT#: [id number] SERVICE 45 REASON: Abdominal Pain ORDERING PHYSICIAN: SEA BUCHANAN DO PROCEDURE: ABD PEL W - CT ABDOMEN/PELVIS W/CONTRAST CT ABDOMEN/PELVIS W/CONTRAST HISTORY: Abdominal pain COMPARISON: None TECHNIQUE: Multiple sequential axial images of the abdomen and pelvis were obtained from the dome of the diaphragm through symphysis pubis. Patient was given 100 cc of Omnipaque through intravenous route. Oral contrast was not given. FINDINGS: No pleural effusion is seen bilaterally. There is no evidence of parenchymal disease or pulmonary nodule of the visualized lower lungs. Minimal degenerative changes of the thoracolumbar spine are present. The heart is not enlarged. There is periumbilical hernia with fat content with fat stranding may be related to incarcerated hernia. Tiny gallstones are seen in the distended gallbladder. Minimal nonspecific small bowel dilatation is seen with fluid-filled may be related to enteritis. The liver, spleen, adrenal glands and pancreas are unremarkable. There is no evidence of hydronephrosis bilaterally. No evidence of renal stone is seen. Fecal material is seen in the colon. There are normal size retroperitoneal and mesenteric lymph nodes. No ascites is seen. Tiny amount of free fluid is seen in the pelvis. Appendix is not well seen limiting evaluation. Pelvic sidewalls are symmetric bilaterally. Bladder is moderately distended with apparent bladder wall thickening measuring 5 mm. If there is clinical suspicion for cystitis, urinalysis correlation may be helpful. IMPRESSION: 1. There is periumbilical hernia with fat content with fat stranding may be related to incarcerated hernia. Tiny gallstones are seen in the distended gallbladder. Minimal nonspecific small bowel dilatation is seen with fluid-filled may be related to enteritis. CT was performed with one or more following dose reduction techniques: automated exposure control, adjustment of the mA and kv according to patient's size, or use of a iterative reconstruction technique. DICTATED BY: TREY CARNES MD DATE: 02/12/242335 ELECTRONICALLY SIGNED BY: TREY CARNES MD DATE: 02/12/24 231 Assessment/Plan: Discharge Diagnoses: Incarcerated hernia, POA Gallstones are seen in the distended gallbladder, POA Acute complicated cystitis, POA Acute abdominal pain, POA Anemia Hyperglycemia Chronic problem list: Asthma, hypertension, History of colon: pre-eclampsia Admitting Diagnoses: Incarcerated hernia, POA Gallstones are seen in the distended gallbladder, POA Acute complicated cystitis, POA Acute abdominal pain, POA Anemia Hyperglycemia Chronic problem list: Asthma, hypertension, History of colon: pre-eclampsia Discharge Instructions: Follow up with your PCP in 2-3 days Home Medications: Reported Medications Labetalol HCl (Labetalol HCl) 200 Mg Tablet, 1 TAB PO BID for 30 Days, #60 TAB 0 Refills 02/13/24 Ferrous Sulfate (Iron) 325 Mg (65 Mg Iron) Tablet, 325 MG PO DAILY, TAB 01/24/24 Vits #93/Iron Fum/FA ( Formula Tablet) 1 Each Tablet, 1 EACH PO DAILY, TAB 08/09/21 Time spent arranging discharge: 31-60 minutes ATTESTATION BY PHYSICIAN I have seen and examined the patient. I reviewed the documentation, medical decision making, and treatment plan as noted by the mid-level provider above. I agree with the findings and plan of care. JUNAID VILLEGAS MD, [facility] Feb 13, 2024 12:56
--- NOTE | 2024-02-13 13:15 | NUR ---
PATIENT IS READY FOR DISCHARGE. PATIENT IS ALERT, ORIENTED IN PERSON, TIME AND PLACE. NO SIGNS OF RESPIRATORY DISTRESS. PIV PATENT. DISCUSSED PLAN OF CARE, PAIN MANAGEMENT, FOLLOW UP APPOINTMENTS AND CURRENT DIET. PATIENT VERBALIZED UNDERSTANDING. DISCONTINUED IV ACCESS. PATIENT WAS WHEELED DOWNSTAIRS AND LEFT IN PRIVATE CAR WITH SIGNIFICANT OTHER.
[2024-02-13] MEDS ORDERED: LAbetaLOL HCL 200 MG TABLET PO SCH (21:00)
== END 2024-02-13 13:25 | disposition home or self-care (01) ==
LOC: EDH 21:25 → EDHIP 02-13 01:16 → INTOOBSV 02-13 01:16 → 3CH 02-13 01:33
PROVIDERS: ADMIT Internal Medicine; ATTEND Internal Medicine
DX: K43.6 Other and unspecified ventral hernia with obstruction, without gangrene (principal); K80.20 Calculus of gallbladder without cholecystitis without obstruction; N30.00 Acute cystitis without hematuria; K42.9 Umbilical hernia without obstruction or gangrene; D64.9 Anemia, unspecified; R73.9 Hyperglycemia, unspecified; K82.8 Other specified diseases of gallbladder; I10 Essential (primary) hypertension; J45.909 Unspecified asthma, uncomplicated; Z79.899 Other long term (current) drug therapy
CPT/HCPCS: 99285; 80053; 83690; 85025; 87086; 81001; 81025; 36415 ×2; 74177; 96365; 80050; 83036; 82248; 83735; 84100; 82948 ×2; Q9967; G0378 ×3; J0696; A4600; 80076; 84443